=== PATIENT | female | born 1965 | race Caucasian/White ===

== ENCOUNTER 2019-02-24 12:24 | Emergency (ER) | payer SELFPAY | END 2019-02-24 15:33 | disposition home or self-care (01) | LOC: FTE 12:24 | DX: R51 Headache (principal) | CPT/HCPCS: 99282 ==

== ENCOUNTER 2019-02-27 13:33 | Emergency (ER) | payer MEDICAID ==
[2019-02-27] MEDS: KETOROLAC 30 MG INJ IV (15:31)
[2019-02-27] MEDS: ONDANSETRON 4 MG INJ IV (15:31)
[2019-02-27] MEDS: SOD CHLORIDE 0.9% 500 ML IV (15:31)
== END 2019-02-27 16:28 | disposition home or self-care (01) ==
LOC: FTE 13:33
DX: G43.909 Migraine, unspecified, not intractable, without status migrainosus (principal)
CPT/HCPCS: 81025; 96374; 96375; 99284-25

== ENCOUNTER 2019-07-05 15:44 | Emergency (ER) | payer OTHER, MEDICAID ==
[2019-07-05] MEDS: LORAZEPAM 2 MG INJ IM (18:03)
== END 2019-07-05 18:38 | disposition home or self-care (01) ==
LOC: FTE 15:44
DX: F41.9 Anxiety disorder, unspecified (principal); G47.00 Insomnia, unspecified
CPT/HCPCS: 96372; 99284-25; J2060